=== PATIENT | male | born 1950 | race Two or more races ===

== ENCOUNTER → 2017-08-03 | Outpatient (CLI) | payer MEDICARE, OTHER ==
[~2017-08-03] MED LIST: APRACLONIDINE 1% 0.1 ML OPH ONE; FER325 PO; INSU100I22 SC; LINA5TAB PO; LISI40TA9 PO; OMEP20CA16 PO; PHENYLephrine 10% 5 ML OPH ONE; PROP20TA4 PO; PROPARACAINE 0.5% 15 ML OPH ONE; TIMO15DR16 BOTH EYES; TROPICAMIDE 1% 3 ML OPH ONE
== END | disposition home or self-care (01) ==
LOC: RAD 10:33
PROVIDERS: ATTEND Ophthalmology
DX: H26.9 Unspecified cataract (principal)